=== PATIENT | female | born 1955 | race Hispanic/Latino ===

== ENCOUNTER 2018-12-17 15:26 | Emergency (ER) | payer OTHER ==
[2018-12-17 16:34] LABS: Absolute Lymphocytes (CBC) 1.4 K/uL (0.7-4.9); Absolute Monocytes 0.6 K/uL (0.1-1.3); Absolute Neutrophil 6.8 K/uL (1.8-8.0); Basophils % 0.7 % (0-1.3); Eosinophils % 1.4 % (0-4.4); Hematocrit 46.6 % (36.0-45.0); Lymphocytes % 15.1 % (15.3-44.8); MPV 9.1 fL (7.6-11.3); Monocytes % 7.1 % (3.3-12.3); RBC Red Blood Cell Count 5.44 M/uL (3.86-4.86)
[2018-12-17 16:38] LABS: Protime INR 1.18
[2018-12-17 17:08] LABS: ALT/SGPT 18 U/L (12-78); AST/SGOT 23 U/L (15-37); Albumin 3.6 g/dL (3.4-5.0); Alkaline Phosphatase 91 U/L (45-117); BUN Blood Urea Nitrogen 9 mg/dL (7-18); Bicarbonate 20 mmol/L (21-32); Bilirubin Direct 0.1 mg/dL (0-0.2); Bilirubin Total 0.4 mg/dL (0.2-1.0); Glucose Level 88 mg/dL (74-106); Magnesium 1.9 mg/dL (1.8-2.4); NT PRO-BNP 66 pg/mL (<125); Potassium 3.1 mmol/L (3.5-5.1); Protein, Total 7.3 g/dL (6.4-8.2); Sodium Level 140 mmol/L (136-145); Troponin (Emerg Dept Use Only) < 0.02 ng/mL (0.0-0.045)
--- NOTE | 2018-12-17 17:31 | RAD REPORT ---
EXAM DESCRIPTION: Aaron Single View12/17/2018 5:13 pm CLINICAL HISTORY: Shortness of breath COMPARISON: none FINDINGS: Small to moderate left pleural effusion with left basilar atelectasis Right lung appears clear The heart is normal size IMPRESSION: Small to moderate left pleural effusion with left basilar atelectasis
--- NOTE | 2018-12-17 17:41 | RAD REPORT ---
EXAM DESCRIPTION: CT - Thorax Wo Con - 12/17/2018 4:36 pm CLINICAL HISTORY: Chest pain COMPARISON: None TECHNIQUE: Computed axial tomography of the chest was obtained. Contrast was not requested. All CT scans are performed using dose optimization technique as appropriate and may include automated exposure control or mA/KV adjustment according to patient size. FINDINGS: The evaluation of mediastinum, esmer and vessels is limited secondary to lack of IV contras t administration. Small to moderate left pleural effusion with left lower lobe atelectasis. The right lung is clear Ascending aorta has an AP diameter 4.1 centimeters. Small to moderate amount of ascites within the upper abdomen IMPRESSION: Small to moderate left pleural effusion with left lower lobe atelectasis Small to moderate amount of ascites within the upper abdomen
[2018-12-17] MEDS ORDERED: NA CHLORIDE 0.9% 1,000 ML ONE (18:34)
--- NOTE | 2018-12-17 19:33 | EDPHYS ---
Physician Documentation [facility] Name: Malena Weinberg Age: 63 yrs Sex: Female : 1955 Arrival Date: 12/17/2018 Time: 15:28 Bed 25 Private MD: ED Physician Thanh Menchaca HPI: 12/17 19:28 This 63 yrs old Female presents to ER via Wheelchair with complaints of gs Breathing Difficulty. 19:28 Onset: The symptoms/episode began/occurred 3 week(s) ago. Duration: The symptoms are gs continuous. The patient's shortness of breath is aggravated by eating. Associated signs and symptoms: Pertinent negatives: chest pain, fever, numbness in extremities. Severity of symptoms: At their worst the symptoms were severe in the emergency department the symptoms are unchanged. The patient has experienced similar episodes in the past, several times. The patient has been recently seen by a physician: JUHI MCCORMACK WITH WHAT APPEARS TO BE PANCREATIC MASS, OMENTAL SPREAD NO TISSUE DIAGNOSIS YET. Historical: - Allergies: 15:35 No Known Allergies; tw2 - Home Meds: 15:35 None [Active]; tw2 - PMHx: 15:35 Cancer; Colon; tw2 - PSHx: 15:35 Cholecystectomy; Hysterectomy; tw2 - Immunization history:: Adult Immunizations. - Social history:: Smoking status: Patient/guardian denies using tobacco. - Ebola Screening: : Patient negative for fever greater than or equal to 101.5 degrees Fahrenheit, and additional compatible Ebola Virus Disease symptoms. ROS: 19:28 All other systems are negative. gs Exam: 19:28 Head/Face: Normocephalic, atraumatic. Eyes: Pupils equal round and reactive to light, gs extra-ocular motions intact. Lids and lashes normal. Conjunctiva and sclera are non-icteric and not injected. Cornea within normal limits. Periorbital areas with no swelling, redness, or edema. ENT: Nares patent. No nasal discharge, no septal abnormalities noted. Tympanic membranes are normal and external auditory canals are clear. Oropharynx with no redness, swelling, or masses, exudates, or evidence of obstruction, uvula midline. Mucous membranes moist. Neck: Trachea midline, no thyromegaly or masses palpated, and no cervical lymphadenopathy. Supple, full range of motion without nuchal rigidity, or vertebral point tenderness. No Meningismus. Chest/axilla: Normal chest wall appearance and motion. Nontender with no deformity. No lesions are appreciated. 19:28 Abdomen/GI: Soft, non-tender, with normal bowel sounds. No distension or tympany. No guarding or rebound. No evidence of tenderness throughout. Back: No spinal tenderness. No costovertebral tenderness. Full range of motion. Skin: Warm, dry with normal turgor. Normal color with no rashes, no lesions, and no evidence of cellulitis. MS/ Extremity: Pulses equal, no cyanosis. Neurovascular intact. Full, normal range of motion. Neuro: Awake and alert, GCS 15, oriented to person, place, time, and situation. Cranial nerves II-XII grossly intact. Motor strength 5/5 in all extremities. Sensory grossly intact. Cerebellar exam normal. Normal gait. 19:28 Constitutional: The patient appears alert, awake, frail. 19:28 Cardiovascular: Rate: tachycardic, Rhythm: regular, Pulses: no pulse deficits are appreciated. 19:28 Respiratory: mild respiratory distress is noted, Respirations: tachypnea, Breath sounds: decreased breath sounds, that are mild, are located in both bases. Vital Signs: 15:33 BP 102 / 86; Pulse 131; Resp 20; Temp 98.2(TE); Pulse Ox 99% on R/A; Weight 49.9 kg tw2 (R); Height 5 ft. 3 in. (160.02 cm); Pain 7/10; 15:58 BP 108 / 83; Pulse 107; Resp 21; Pulse Ox 99% on R/A; aj1 17:16 BP 110 / 85; Pulse 115; Resp 20; Pulse Ox 99% on R/A; aj1 18:13 BP 115 / 86; Pulse 108; Resp 20; Pulse Ox 99% on R/A; aj1 18:30 BP 132 / 90; Pulse 112; Resp 17 S; Pulse Ox 97% on R/A; rv 19:22 BP 136 / 89; Pulse 105; Resp 20; Pulse Ox 99% on R/A; aj1 15:33 Body Mass Index 19.49 (49.90 kg, 160.02 cm) tw2 MDM: 16:05 Patient medically screened. gs 19:28 Differential diagnosis: CHF exacerbation, Myocardial Infarction pneumonia. Data gs reviewed: vital signs, nurses notes. ED course: DISCUSSED WITH FAMILY, AND DR GAR CAME TO SEE PT, HAVE DISCUSSED POOR PROGNOSIS AND WILL CONSIDER TACTICAL/MOBILE WATCH OFFICER SOCIAL WORK WILL SEE TOMORROW. 19:33 Data reviewed: lab test result(s), EKG, radiologic studies. 12/17 16:05 Order name: Basic Metabolic Panel; Complete Time: 17:14 12/17 16:05 Order name: CBC with Diff; Complete Time: 17:14 12/17 16:05 Order name: LFT's; Complete Time: 17:14 12/17 16:05 Order name: Magnesium; Complete Time: 17:14 12/17 16:05 Order name: NT PRO-BNP; Complete Time: 17:14 12/17 16:05 Order name: PT-INR; Complete Time: 17:14 12/17 16:05 Order name: Troponin (emerg Dept Use Only); Complete Time: 17:14 12/17 16:05 Order name: XRAY Chest (1 view); Complete Time: 17:45 12/17 16:05 Order name: EKG; Complete Time: 16:05 12/17 16:05 Order name: Cardiac monitoring; Complete Time: 16:07 12/17 16:05 Order name: EKG - Nurse/Tech; Complete Time: 16:07 12/17 16:05 Order name: IV Saline Lock; Complete Time: 16:07 12/17 16:05 Order name: CT Chest Wo Con; Complete Time: 17:45 12/17 16:05 Order name: Labs collected and sent; Complete Time: 16:07 12/17 16:05 Order name: O2 Per Protocol; Complete Time: 16:07 12/17 16:05 Order name: O2 Sat Monitoring; Complete Time: 16:08 Administered Medications: 18:24 Drug: NS 0.9% 1000 ml Route: IV; Rate: 1 bolus; Site: left antecubital; aj1 Disposition: 12/17/18 19:33 Discharged to Home. Impression: Dyspnea, Malignant pleural effusion. - Condition is Stable. - Discharge Instructions: Pleural Effusion, Shortness of Breath, [id number]. - Medication Reconciliation Form, Thank You Letter, Antibiotic Education, Prescription Opioid Use form. - Follow up: Private Physician; When: 1 - 2 days; Reason: Re-evaluation by your physician. Signatures: Dispatcher [employer] Nitza Carroll RN RN aj1 Susi Mandujano RN RN tw2 Thanh Menchaca MD MD gs Acob, LAURA Neville RN ca1 Corrections: (The following items were deleted from the chart) 20:07 19:33 12/17/2018 19:33 Discharged to Home. Impression: Dyspnea; Malignant pleural ca1 effusion. Condition is Stable. Forms are Medication Reconciliation Form, Thank You Letter, Antibiotic Education, Prescription Opioid Use. Follow up: Private Physician; When: 1 - 2 days; Reason: Re-evaluation by your physician. gs
--- NOTE | 2018-12-17 19:33 | ER ---
Nurse's Notes [facility] Name: Malena Weinberg Age: 63 yrs Sex: Female : 1955 Arrival Date: 12/17/2018 Time: 15:28 Bed 25 Private MD: Diagnosis: Dyspnea;Malignant pleural effusion Presentation: 12/17 15:31 Presenting complaint: Child states: she hasnt been eating good for months, just tw2 drinking, we took her to [facility] and was diagnosed with Colon Cancer and has appt in [place] December 25, but she just dont eat, she is saying her chest hurts about 30 minutes ago but also feels sob since last night. Transition of care: patient was not received from another setting of care. Onset of symptoms was December 17, 2018. Risk Assessment: Do you want to hurt yourself or someone else? Patient reports no desire to harm self or others. Initial Sepsis Screen: Does the patient meet any 2 criteria? RR > 20 per min. Does the patient have a suspected source of infection? No. Patient's initial sepsis screen is negative. Care prior to arrival: None. 15:31 Method Of Arrival: Wheelchair tw2 15:31 Acuity: HANNAH 2 tw2 15:35 Presenting complaint: Child states: she is very nauseous and that's why she cant eat. tw2 Triage Assessment: 15:33 General: Appears ill, slender, Behavior is quiet. Pain: Complains of pain in back, tw2 chest and abdomen. Cardiovascular: Reports chest pain, shortness of breath. Historical: - Allergies: 15:35 No Known Allergies; tw2 - Home Meds: 15:35 None [Active]; tw2 - PMHx: 15:35 Cancer; Colon; tw2 - PSHx: 15:35 Cholecystectomy; Hysterectomy; tw2 - Immunization history:: Adult Immunizations. - Social history:: Smoking status: Patient/guardian denies using tobacco. - Ebola Screening: : Patient negative for fever greater than or equal to 101.5 degrees Fahrenheit, and additional compatible Ebola Virus Disease symptoms. Screenin:03 Abuse screen: Denies threats or abuse. Denies injuries from another. Nutritional aj1 screening: No deficits noted. Tuberculosis screening: No symptoms or risk factors identified. Assessment: 16:03 General: Appears in no apparent distress. uncomfortable, Behavior is calm, cooperative, aj1 appropriate for age. Pain: Complains of pain in back and abdomen Pain does not radiate. Neuro: Level of Consciousness is awake, alert, obeys commands, Oriented to person, place, time, situation. Cardiovascular: Reports chest pain, nausea, Heart tones S1 S2 present Patient's skin is warm and dry. Rhythm is sinus rhythm. Respiratory: Airway is patent Respiratory effort is even, unlabored, Respiratory pattern is regular, symmetrical. GI: Abdomen is flat, non-distended, Bowel sounds hypoactive in right lower quadrant and left lower quadrant Abd is soft X 4 quads Abdomen is tender to palpation X 4 quads. Reports nausea, Patient currently denies diarrhea, vomiting. : No signs and/or symptoms were reported regarding the genitourinary system. EENT: No signs and/or symptoms were reported regarding the EENT system. Derm: Skin is pale. 17:16 Reassessment: Patient appears in no apparent distress at this time. No changes from aj1 previously documented assessment. Patient and/or family updated on plan of care and expected duration. Pain level reassessed. Patient is alert, oriented x 3, equal unlabored respirations, skin warm/dry/pink. 18:00 Reassessment: Dr. Menchaca at bedside. aj1 18:10 Reassessment: Patient's daughter wants to know when we will start giving IV fluids, aj1 explained that no IV fluids are ordered at this time. Dr. Menchaca notified of patient's concern. Order received. 19:21 Reassessment: Patient appears in no apparent distress at this time. No changes from aj1 previously documented assessment. Patient and/or family updated on plan of care and expected duration. Pain level reassessed. Patient is alert, oriented x 3, equal unlabored respirations, skin warm/dry/pink. 20:00 Reassessment: Patient appears in no apparent distress at this time. Patient is alert, ca1 oriented x 3, equal unlabored respirations, skin warm/dry/pink. Vital Signs: 15:33 BP 102 / 86; Pulse 131; Resp 20; Temp 98.2(TE); Pulse Ox 99% on R/A; Weight 49.9 kg tw2 (R); Height 5 ft. 3 in. (160.02 cm); Pain 7/10; 15:58 BP 108 / 83; Pulse 107; Resp 21; Pulse Ox 99% on R/A; aj1 17:16 BP 110 / 85; Pulse 115; Resp 20; Pulse Ox 99% on R/A; aj1 18:13 BP 115 / 86; Pulse 108; Resp 20; Pulse Ox 99% on R/A; aj1 18:30 BP 132 / 90; Pulse 112; Resp 17 S; Pulse Ox 97% on R/A; rv 19:22 BP 136 / 89; Pulse 105; Resp 20; Pulse Ox 99% on R/A; aj1 15:33 Body Mass Index 19.49 (49.90 kg, 160.02 cm) tw2 ED Course: 15:28 Patient arrived in ED. mr 15:31 Arm band placed on. EKG completed in triage. Results shown to MD. tw2 15:33 Triage completed. tw2 15:41 Thanh Menchaca MD is Attending Physician. gs 15:48 Nitza Britt, RN is Primary Nurse. aj1 15:51 EKG done, by emergency vehicle technician. reviewed by Delano Hines MD. sm3 16:03 Patient has correct armband on for positive identification. Bed in low position. Call aj1 light in reach. Side rails up X 1. sheriff's detective on. Pulse ox on. NIBP on. Door closed. Warm blanket given. Pillow given. Family accompanied patient. 16:03 No provider procedures requiring assistance completed. Patient maintains SpO2 aj1 saturation greater than 95% on room air. 16:36 CT Chest Wo Con In Process Unspecified. EDMS 17:13 XRAY Chest (1 view) In Process Unspecified. EDMS 20:05 IV discontinued, intact, bleeding controlled, No redness/swelling at site. Pressure ca1 dressing applied. Administered Medications: 18:24 Drug: NS 0.9% 1000 ml Route: IV; Rate: 1 bolus; Site: left antecubital; aj1 Outcome: 19:33 Discharge ordered by MD. gs 20:05 Discharged to home via wheelchair, with family. ca1 20:05 Condition: stable 20:05 Discharge instructions given to patient, and daughter Instructed on discharge instructions, follow up and referral plans. Demonstrated understanding of instructions, follow-up care. 20:07 Patient left the ED. ca1 Signatures: Dispatcher [employer] EDMS Britt Nitza, RN RN aj1 Raya, Alison mr Delbert, Susi, RN RN tw2 Thanh Menchaca MD MD Ena Eden 3 Jah Tanner, RN RN rv Acrogelio, Kelin RN RN ca1
--- NOTE | 2018-12-17 21:39 | EKG ---
Test Date: 2018-12-17 Test Time: 15:33:25 Electronics System Mechanic: MAY MEASUREMENT RESULTS: Intervals: Rate: 126 HI: 152 QRSD: 58 QT: 298 QTc: 431 Atkinson: P: 57 HI: 152 QRS: -72 T: 57 INTERPRETIVE STATEMENTS: Sinus tachycardia Left axis deviation Inferior infarct, age undetermined Anterolateral infarct, age undetermined Abnormal ECG No previous ECG available for comparison Electronically Signed On 12-17-18 21:38:13 CDT by Dominik Marcial
== END 2018-12-17 20:07 | disposition home or self-care (01) ==
LOC: ER 15:26
DX: J91.0 Malignant pleural effusion (principal); K86.9 Disease of pancreas, unspecified; Z85.038 Personal history of other malignant neoplasm of large intestine
CPT/HCPCS: 93005; 85025; 80048; 36415; 83735; 85610; 80076; 84484; 83880; 71250; 71045; J7030